=== PATIENT | male | born 2000 | race Hispanic/Latino ===

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

== ENCOUNTER 2025-02-20 13:12 | Emergency (ER) | payer BC ==
[~2025-02-20] VITALS: Ht 170.2 cm; Wt 69.9 kg
[~2025-02-20 13:12] MED LIST: ONDA-243 PO
[2025-02-20 13:14] VITALS: BP 108/69; PULSE 62; RESP 14; TEMP 97.6
--- NOTE | 2025-02-20 13:25 | NUR ---
PATIENT ELOPED. PATIENT PARTNER CAME TO TELL US THEY ARE LEAVING TO [facility]. SEEN LEAVING ER.
--- NOTE | 2025-02-20 13:28 | ERN ---
ED Note History of Present Illness Stated Complaint: LEFT EAR PAIN WITH MASS Chief Complaint: Earache Time Seen by MD: 13:16 Dictation: PATIENT IS A 24-YEAR-OLD MALE HERE WITH SWELLING TO THE LEFT EAR PAIN HE HAS HAD FOR 3-4 DAYS. STATES IT STARTED OUT A PIMPLE AND GOT WORSE WHEN HE SQUEEZED IT TWO DAYS AGO. HE STATES HE HAS CONTINUED TO WORK, DID NOT GO SEE HIS DOCTOR AT [facility]. NO FEVER NO CHILLS AT THIS TIME. NO MASTOID TENDERNESS ON EXAM IN TRIAGE. NO CHANGE IN HEARING ACUITY Allergies: Coded Allergies: No Known Allergies (Unverified Allergy, Unknown, 01/22/25) Home Meds Active Scripts Ondansetron (Ondansetron Odt) 4 Mg Tab.rapdis, 1 TAB PO Q6HPRN PRN for nausea/vomiting for 3 Days, #10 TAB 0 Refills Prov:MADISYN MASTERSON DO 01/22/25 Past Medical History Past Medical History: No Pertinent History Surgical History: None RN Note Reviewed/Agreed w/PFSH: Yes Review of System Dictation CONSTITUTIONAL: NEGATIVE EXCEPT FOR HPI HEAD/FACE: NEGATIVE EXCEPT FOR HPI EENT: NEGATIVE EXCEPT FOR HPI RIGHT EAR PAIN OF PAIN SWELLING RESPIRATORY: NEGATIVE EXCEPT FOR HPI GASTROINTESTINAL/ABDOMINAL: NEGATIVE EXCEPT FOR HPI GENITOURINARY: NEGATIVE EXCEPT FOR HPI MUSCULOSKELETAL: NEGATIVE EXCEPT FOR HPI INTEGUMENTARY: NEGATIVE EXCEPT FOR HPI NEUROLOGICAL/PSYCH: NEGATIVE EXCEPT FOR HPI HEMATOLOGIC/LYMPHATIC: NEGATIVE EXCEPT FOR HPI ALL SYSTEMS NEGATIVE, EXCEPT NOTED ABOVE. 13 POINT REVIEW OF SYSTEMS ASSESSED AND ALL NEGATIVE EXCEPT FOR ABOVE. Initial Vital Sign VS Vital Signs Date Time Temp Pulse Resp B/P (MAP) Pulse Ox O2 Delivery O2 Flow Rate FiO2 02/20/25 13:14 97.5 62 14 108/69 100 0 Physical Exam Dictation VITAL SIGNS REVIEWED GENERAL APPEARANCE: ALERT, ORIENTED X 3, MILD ACUTE DISTRESS, WELL DEVELOPED, NOURISHED. HEAD AND FACE: NON-TRAUMATIC. EYES: PERRL, PINK CONJUNCTIVAS, EYELID NO TRAUMA, ANTERIOR CHAMBER WITH ARCUS SENILIS. EARS: RIGHT PAIN AND WITH MILD ERYTHEMA SWELLING. TM INTACT. NO MASTOID TENDERNESS NOSE: NO DISCHARGE, NO BLEEDING. OROPHARYNX: MOUTH NORMAL, TONGUE PINK, PHARYNX CLEAR,NO ERYTHEMA, TONSILS NO EXUDATES, NO ABSCESSES NOTED, MUCOUS MEMBRANE MOIST NECK: SUPPLE, NON-TENDER, NO THYROMEGALY, NO MASSES, NO JVD, NO BRUITS BREAST:DEFERRED CHEST:NO TENDERNESS, NO CREPITUS, NO PARADOXICAL MOVEMENT, NO RETRACTIONS LUNGS:CLEAR, WELL-VENTILATED, SYMMETRIC, NO RALES, NO WHEEZING, NO RHONCHI, NO STRIDOR, GOOD BREATH SOUNDS BILATERALLY HEART: REGULAR RATE, REGULAR RHYTHM, NO MURMUR, NO GALLOPS VASCULAR: NO PERIPHERAL EDEMA, ABDOMEN: SOFT, POSITIVE BOWEL SOUNDS, NONDISTENDED, NO GUARDING, NONTENDER, NO REBOUND, NO MASSES NO HEPATOMEGALY, NO SPLENOMEGALY, NO MCFARLAND'S SIGN, NO HERNIAS. RECTAL: DEFERRED GENITAL: DEFERRED NEUROLOGICAL: NORMAL SPEECH, MOTOR FUNCTION INTACT, SENSORY FUNCTION INTACT MUSCULOSKELETAL: NECK NONTENDER, FULL RANGE OF MOTION, BACK NONTENDER, FULL RANGE OF MOTION, EXTREMITIES: NONTENDER, FULL RANGE OF MOTION SKIN: COLOR PINK, DRY, NO TURGOR, NO RASH, NO LACERATIONS, NO ABRASIONS, NO CONTUSIONS. LYMPHATIC: DEFERRED Results (Laboratory/Radiology) Labs Reviewed?: Yes ED Course ED Course Orders Procedure Category Date Status Time Ibuprofen 800 Mg Tab PHA 02/20/25 Transmitted (Motrin) 13:30 Ceftriaxone 1g Vial PHA 02/20/25 Transmitted (Rocephine 1g Inj) 13:30 Current Medications Medications (Trade) Dose Ordered Sig/Toya Route PRN Reason Start Time Stop Time Status Last Admin Dose Admin Ceftriaxone Sodium (ROCEphine 1G INJ) 1 gm ONCE ONCE IM 02/20/25 13:30 02/20/25 13:31 UNV Ibuprofen (moTRIN) 800 mg ONCE ONCE PO 02/20/25 13:30 02/20/25 13:31 UNV Vital Signs Date Time Temp Pulse Resp B/P (MAP) Pulse Ox O2 Delivery O2 Flow Rate FiO2 02/20/25 13:14 97.5 62 14 108/69 100 0 1325/PATIENT WILL BE GIVEN IBUPROFEN AND ROCEPHIN IM. TOLD TO NOT SQUEEZE ANY LESIONS ON HIS EAR AND TO SEE HIS DOCTOR ON SATURDAY FOR REFERRAL TO ENT. Medical Decision Making MDM MEDICAL DISCHARGE MAKING BASED ON CELLULITIS RIGHT EAR [place] DISCHARGED HOME AFTER ROCEPHIN AND IBUPROFEN JANUSZ GASTON FROM TRIAGE INFORMED ME THE PATIENT LEFT AGAINST MEDICAL ADVICE TOLD HIM THEY WERE GOING TO GO TO [facility] DX & DISP Disposition: Departure Impression: Primary Impression: Cellulitis of right external ear Condition: Stable Referrals: SELF,REFERRAL (PCP) I have reviewed the case, and I agree with, Diagnosis and Plan DARRYL VARGAS NP Feb 20, 2025 13:28
[2025-02-20] MEDS ORDERED: ibuPROFEN 800 MG TAB PO ONE (13:30)
[2025-02-20] MEDS ORDERED: cefTRIAXone 1G VIAL IM ONE (13:30)
== END 2025-02-20 13:25 ==
LOC: EDH 13:12
DX: H60.11 Cellulitis of right external ear (principal)
CPT/HCPCS: 99283; 99285

== ENCOUNTER 2025-04-09 20:39 | Emergency (ER) | payer BC ==
[~2025-04-09] VITALS: Ht 170.2 cm; Wt 58.1 kg
--- NOTE | 2025-04-09 20:42 | NUR ---
UA CUP PROVIDED
[2025-04-09 21:12] LABS: BASOPHILS # (AUTO) 0.07 K/uL (0.00-0.20); BASOPHILS % (AUTO) 0.8 % (0.0-5.0); EOSINOPHILS # (AUTO) 0.05 K/uL (0.00-0.70); EOSINOPHILS % (AUTO) 0.6 % (0.0-8.0); HEMATOCRIT 39.1 % (42-54); IMMATURE GRANULOCYTE ABSOLUTE 0.03 K/uL (0-1); LYMPHOCYTES # (AUTO) 2.4 K/uL (1.0-4.8); LYMPHOCYTES % (AUTO) 28.3 % (21.0-51.0); MEAN CORPUSCULAR HEMOGLOBIN 32.9 pg (27.0-33.0); MONOCYTES # (AUTO) 0.7 K/uL (0.1-1.0); MONOCYTES % (AUTO) 8.5 % (3.0-13.0); NEUTROPHILS # (AUTO) 5.3 K/uL (1.8-7.7); NEUTROPHILS % (AUTO) 61.5 % (40.0-77.0); PLATELET COUNT (AUTO) 271 K/uL (130-400); RED BLOOD CELL COUNT(AUTO) 4.16 MIL/uL (4.50-6.20); WHITE BLOOD COUNT (AUTO) 8.6 K/uL (4.8-10.8)
--- NOTE | 2025-04-09 21:12 | ERN ---
ED Note History of Present Illness Stated Complaint: ABD PAIN, DARK STOOLS, NAUSEA Chief Complaint: Multiple Complaints Time Seen by MD: 20:46 Time Seen by Midlevel: 21:00 Dictation: Mr. Peck is a 24-year-old male with no reported chronic health issues who presented to the emergency department this evening for evaluation of abdominal pain. He reports upper abdominal/epigastric abdominal pain x1 week. He states he has had dark/bloody stools. He states he saw his PCP yesterday and received a referral to see director of pupil personnel program. Pain worsened today; rates 8/10, prompting him to come to the hospital. He denies having fever, chills, shortness of breath, cough, chest pain, palpitations, edema, nausea, vomiting, hematemesis, hematochezia, constipation, headache, or dizziness. Allergies: Coded Allergies: No Known Allergies (Unverified Allergy, Unknown, 01/22/25) Home Meds Active Scripts Ondansetron (Ondansetron Odt) 4 Mg Tab.rapdis, 1 TAB PO Q6HPRN PRN for nausea/vomiting for 3 Days, #10 TAB 0 Refills Prov:MADISYN MASTERSON DO 01/22/25 Past Medical History Past Medical History: No Pertinent History Surgical History: None PSYCH History: no pertinent psych hx Social History: Negative RN Note Reviewed/Agreed w/PFSH: Yes Review of System Dictation REVIEW OF SYSTEMS: CONSTITUTIONAL: Patient denies fevers, chills, sweats and weight changes. EYES: Patient denies any visual symptoms. EARS, NOSE, AND THROAT: No difficulties with hearing. No symptoms of rhinitis or sore throat. CARDIOVASCULAR: Patient denies chest pains, palpitations, orthopnea and paroxysm al nocturnal dyspnea. RESPIRATORY: No dyspnea on exertion, no wheezing or cough. GI: No nausea, vomiting, diarrhea, constipation, or hematochezia reports upper abdominal/epigastric pain as well as dark/bloody stools x1 week. Pain today worsened; rates 8/10. : No urinary hesitancy or dribbling. No nocturia or urinary frequency. No abnormal urethral discharge. MUSCULOSKELETAL: No myalgias or arthralgias. NEUROLOGIC: No chronic headaches, no seizures. Patient denies numbness, tingling or weakness. PSYCHIATRIC: Patient denies problems with mood disturbance. No problems with anxiety. ENDOCRINE: No excessive urination or excessive thirst. DERMATOLOGIC: Patient denies any rashes or skin changes. Initial Vital Sign VS Vital Signs Date Time Temp Pulse Resp B/P (MAP) Pulse Ox O2 Delivery O2 Flow Rate FiO2 04/09/25 20:40 97.9 77 16 124/87 100 Room Air Physical Exam Dictation Vital signs: Reviewed. Afebrile Constitutional: No acute distress. Non-toxic appearing. Smiling/laughing. Accompanied by significant other Head/Face: Normocephalic, atraumatic. Eyes: Periorbital areas with no swelling, redness, or edema. Lids and lashes are normal. Conjunctival injection is absent. Sclera anicteric. Pupils equal, round, reactive to light. ENT: Pinnas intact and no signs of trauma or erythema. Ear canals clear and no discharge. TMs no erythema. No nasal discharge or bleeding noted. Oropharynx with no exudate, redness, swelling, masses, exudates, or evidence of obstruction. Uvula midline. Mucous membranes moist. Neck: Trachea midline, no masses palpated, and no cervical lymphadenopathy. No swelling. Supple, full range of motion. Chest/Axilla: No tenderness, no crepitus, no paradoxical movement, no retractions. Cardiovascular: Regular rate, regular rhythm, no murmur, no gallops. Symmetric pulses. No peripheral edema. Respiratory: Respirations even and unlabored. Lung sounds clear; no wheezes, rales or rhonchi. Room air SpO2 99% Gastrointestinal: Inspection is normal. No distention is appreciated. Bowel sounds are normal. No mass or organomegaly . There is slight tenderness diffusely. No rebound. No rigidity. No voluntary or involuntary guarding. No Whelan's sign. : Urine clear/yellow. Negative CVA tenderness bilaterally Neurological: Normal speech, gross motor function intact, gross sensory func tion intact. No focal weakness/Paresthesia. Musculoskeletal/Extremities: All extremities have full range of motion, no pain or tenderness on palpation. Symmetric pulses. Integumentary: Intact. Skin is normal color, warm and dry. Cap refill less than 2 seconds. Results (Laboratory/Radiology) Laboratory/Radiology Laboratory Tests Test 04/09/25 21:04 White Blood Count 8.6 K/uL (4.8-10.8) Red Blood Count 4.16 MIL/uL (4.50-6.20) L Hemoglobin 13.7 g/dL (14.0-18.0) L Hematocrit 39.1 % (42-54) L Mean Corpuscular Volume 94.0 fL (79-99) Mean Corpuscular Hemoglobin 32.9 pg (27.0-33.0) Mean Corpuscular Hemoglobin Concent 35.0 g/dL (32.0-36.0) Red Cell Distribution Width 12.0 % (11.0-15.5) Platelet Count 271 K/uL (130-400) Mean Platelet Volume 9.6 fL (7.5-10.5) Immature Granulocyte % (Auto) 0.3 % (0-1) Neutrophils (%) (Auto) 61.5 % (40.0-77.0) Lymphocytes (%) (Auto) 28.3 % (21.0-51.0) Monocytes (%) (Auto) 8.5 % (3.0-13.0) Eosinophils (%) (Auto) 0.6 % (0.0-8.0) Basophils (%) (Auto) 0.8 % (0.0-5.0) Neutrophils # (Auto) 5.3 K/uL (1.8-7.7) Lymphocytes # (Auto) 2.4 K/uL (1.0-4.8) Monocytes # (Auto) 0.7 K/uL (0.1-1.0) Eosinophils # (Auto) 0.05 K/uL (0.00-0.70) Basophils # (Auto) 0.07 K/uL (0.00-0.20) Absolute Immature Granulocyte (auto 0.03 K/uL (0-1) Nucleated Red Blood Cells 0.0 % (0.0-0.19) Urine Color YELLOW (YELLOW) Urine Appearance CLEAR (CLEAR) Urine pH 5.5 (5.0-8.0) Urine Specific [place] 1.027 (1.001-1.031) Urine Protein 20 mg/dL (NEGATIVE) H Urine Glucose (UA) NEGATIVE mg/dL (NEGATIVE) Urine Ketones NEGATIVE mg/dL (NEGATIVE) Urine Occult Blood NEGATIVE (NEGATIVE) Urine Nitrate NEGATIVE (NEGATIVE) Urine Bilirubin NEGATIVE mg/dL (NEGATIVE) Urine Urobilinogen 0.2 mg/dL (0.2-1.0) Urine Leukocyte Esterase NEGATIVE Amy/uL Urine RBC 0-1 /HPF (0-1) Urine WBC 0-1 /HPF (0-1) Urine Squamous Epithelial Cells RARE /HPF (0-2) Urine Bacteria None /HPF (None Seen) Sodium Level 144 mmol/L (136-145) Potassium Level 3.6 mmol/L (3.5-5.1) Chloride Level 106 mmol/L (101-111) Carbon Dioxide Level 30 mmol/L (21-32) Blood Urea Nitrogen 16 mg/dL (7-18) Creatinine 0.8 mg/dL (0.5-1.3) Glomerular Filtration Rate Calc 126 mL/min (>90) Random Glucose 76 mg/dL (70-105) Total Calcium 8.8 mg/dL (8.5-10.1) Troponin I High Sensitivity < 4 ng/L (4-75) L Lipase 258 U/L (16-77) H Urine Opiates Screen NEGATIVE (NEGATIVE) Urine Barbiturates Screen NEGATIVE (NEGATIVE) Urine Phencyclidine Screen NEGATIVE (NEGATIVE) Urine Amphetamines Screen NEGATIVE (NEGATIVE) Urine Benzodiazepines Screen NEGATIVE (NEGATIVE) Urine Cocaine Screen NEGATIVE (NEGATIVE) Urine Marijuana (THC) Screen POSITIVE (NEGATIVE) H Serum Alcohol < 3 mg/dL (0-10) Labs Reviewed?: Yes CT Scan Comment: PATIENT: PAM PECK MR#: [id number] : 2000 SEX: M AGE: 24 LOCATION: [facility] ORDER 11 STATUS: [facility] REPORT#: [id number] SERVICE 10 REASON: upper abdominal pain ORDERING PHYSICIAN: DAJUAN GREENFIELD NP PROCEDURE: ABD PEL WO - CT ABDOMEN/PELVIS W/O CONTRAST CT ABDOMEN WITHOUT CONTRAST. CT PELVIS WITHOUT CONTRAST. INDICATION: Upper abdominal pain TECHNIQUE: Routine transaxial imaging using 5 mm slice thickness through the abdomen and pelvis without the administration of IV contrast. Thin slice reconstructions are also provided. Coronal and sagittal reformatted images acquired for interpretation. CT was performed with one or more of the following dose reduction techniques: Automated exposure control, adjustment of the mA and/or kV according to patient size, or use of iterative reconstruction technique. COMPARISON: None FINDINGS: ON NONCONTRAST IMAGING: ABDOMEN: Heart size is normal. Visible lung bases are clear. No abnormal renal calcifications, hydronephrosis, perinephric inflammation, or proximal hydroureter detected. The liver is normal in size and smooth in contour without biliary duct dilation. The spleen is normal in size and attenuation. The gallbladder appears normal. The pancreas appears normal without pancreatic duct dilation. The adrenal glands appear normal. No significant abdominal, retrocrural or retroperitoneal adenopathy noted. No evidence for intra-abdominal free air or organized fluid collection. No aortic aneurysmal dilation identified. PELVIS: No abnormal calcifications within the urinary bladder or distal ureters. No evidence for free air or organized pelvic fluid collection. No significant pelvic adenopathy detected. Mild to moderate wall thickening/submucosal edema suspected along the proximal jejunum within the left upper abdomen. No surrounding inflammatory fat stranding. Terminal ileum appears unremarkable. The appendix appears normal. Visible osseous structures are intact. IMPRESSION: Suspect mild proximal jejunitis. Otherwise, normal study. DICTATED BY: ZENA UMAÑA MD DATE: 04/09/252135 ELECTRONICALLY SIGNED BY: ZENA UMAÑA MD DATE: 04/09/252140 ED Course ED Course Orders Procedure Category Date Status Time Vital Signs Per CPOE 04/09/25 Transmitted Routine 20:41 Saline Lock Iv CPOE 04/09/25 Transmitted 20:41 Cbc With Differential LAB 04/09/25 Complete 20:41 Lipase LAB 04/09/25 Complete 20:41 Urinalysis Profile LAB 04/09/25 Complete 20:41 Basic Metabolic Panel LAB 04/09/25 Complete 20:41 Drug Screen Urine LAB 04/09/25 Complete 20:41 Type And Screen BBK 04/09/25 Complete 21:07 Troponin I High LAB 04/09/25 Complete Sensitivity 21:07 Pantoprazole 40mg Inj PHA 04/09/25 In Process (Protonix 40mg Inj 21:30 Occult Blood Stool LAB 04/09/25 Logged Single Only 21:07 Ct Abdomen/Pelvis W/O CT 04/09/25 Resulted Contrast 21:11 Alcohol, Blood LAB 04/09/25 Complete 23:03 Current Medications Medications (Trade) Dose Ordered Sig/Toya Route PRN Reason Start Time Stop Time Status Last Admin Dose Admin Pantoprazole Sodium (PROTonix 40MG INJ) 40 mg ONCE IVP 04/09/25 21:30 04/09/25 23:59 04/09/25 23:15 Vital Signs Date Time Temp Pulse Resp B/P (MAP) Pulse Ox O2 Delivery O2 Flow Rate FiO2 04/09/25 20:40 97.9 77 16 124/87 100 Room Air Uneventful ED course. Vital signs remained stable; afebrile and normotensive with room air SpO2 100%. CT scan of the abdomen and pelvis revealed [id number] wall thickening/submucosal edema suspected along the proximal jejunum within the left upper abdomen no surrounding inflammatory fat stranding in the terminal ileum appears unremarkable. Laboratory findings as noted below. No elevation of WBCs. H&H are 13.7/39.1, no electrolyte derangement. Lipase is elevated at 358. UA is clear. UDS positive for marijuana. While in the ED he received dose Protonix. He has referral to director of pupil personnel program scheduled. Findings were discussed with patient and all questions were answered. Medical Decision Making MDM MDM: DIFFERENTIAL DIAGNOSIS: ANEMIA, GASTRITIS, UTI RATIONALE: TESTS CONSIDERED AND ORDERED SECONDARY TO SHARED DECISION MAKING INCLUDE: PREVIOUS OUTSIDE RECORDS REVIEWED: OLD ER VISITS. RISK OF COMPLICATION AND/OR MORBIDITY OR MORTALITY OF PATIENT MANAGEMENT: NONE MEDICATIONS-PER MEDICATION RECONCILIATION NEED FOR HOSPITALIZATION: PATIENT DOES NOT MEET CRITERIA FOR HOSPITALIZATION. NEED FOR EMERGENCY MAJOR/MINOR SURGERY: NO THERE ARE NO SOCIAL CONCERNS WITH THIS PATIENT. PRESCRIPTION DRUG MANAGEMENT: FLAGYL, OMEPRAZOLE PRESCRIPTIONS WILL INCLUDE SYMPTOMATIC CARE PATIENT'S PRIOR EXTERNAL MEDICAL RECORDS FROM OTHER ER VISITS WERE REVIEWED BY ME INDICATED. PRIOR TESTING AND RESULTS FROM PREVIOUS VISITS WERE REVIEWED. PRIOR TESTS WERE TAKEN INTO ACCOUNT WITH MEDICAL DECISION MAKING AND RESOURCE UTILIZATION, INDEPENDENT HISTORIAN/HISTORIANS WERE USED TO OBTAIN COMPLETE MEDICAL HISTORY. I INDEPENDENTLY INTERPRETED THE TEST THAT WERE PERFORMED, RESULTS WERE REVIEWED BY ME AND CONSIDERED FINDINGS ON RADIOLOGY IF ORDERED. MEDICAL MANAGEMENT AND EXAMINATION INTERPRETATION DISCUSSIONS WERE HAD BY ME WITH OTHER QUALIFIED HEALTHCARE PROFESSIONALS INDICATED FOR THE PATIENT'S CARE. DX & DISP Disposition: Discharge Departure Impression: Primary Impression: Jejunitis Additional Impressions: Abdominal pain, Elevated lipase Condition: Stable Scripts Metronidazole (Metronidazole) 500 Mg Tablet 1 TAB PO TID for 10 Days, #30 TAB 0 Refills Prov: DAJUNA GREENFIELD ELECTRICAL LOGGING ENGINEER 04/09/25 Omeprazole (Omeprazole) 40 Mg Capsule. 1 CAP PO DAILY for 30 Days, #30 CAP 0 Refills Prov: DAJUAN GREENFIELD ELECTRICAL LOGGING ENGINEER 04/09/25 Additional Instructions: Rest. Drink plenty of fluids bland diet. May take Zofran ODT every 8 hours as needed for nausea. Continue follow up with your PCP and director of pupil personnel program. Return to the emergency department for any worsening of symptoms or concerns. Referrals: SELF,REFERRAL (PCP) Time of Disposition: 23:52 DAJUAN GREENFIELD NP April 09, 2025 21:12
[2025-04-09 21:25] LABS: APPEARANCE,URINE CLEAR (CLEAR); BILIRUBIN,URINE NEGATIVE (NEGATIVE); COLOR,URINE YELLOW (YELLOW); GLUCOSE, URINE (UA) NEGATIVE (NEGATIVE); KETONES,URINE NEGATIVE (NEGATIVE); LEUKOCYTE ESTERASE ,URINE NEGATIVE Leu/uL (NEGATIVE); NITRATE,URINE NEGATIVE (NEGATIVE); OCCULT BLOOD,URINE NEGATIVE (NEGATIVE); PH,URINE 5.5 (5.0-8.0); PROTEIN,URINE 20 mg/dL (NEGATIVE); UROBILINOGEN,URINE 0.2 mg/dL (0.2-1.0)
[2025-04-09 21:29] LABS: ADD UA MICROSCOPIC YES
[2025-04-09 21:30] LABS: MUCUS,URINE MANY LPF (None Seen); RBC,URINE 0-1 /HPF (0-1); SQUAMOUS EPITHELIAL CELL,UR RARE /HPF (0-2); WBC,URINE 0-1 /HPF (0-1)
[2025-04-09 21:31] LABS: CREATININE 0.8 mg/dL (0.5-1.3); POTASSIUM 3.6 mmol/L (3.5-5.1)
--- NOTE | 2025-04-09 21:41 | HMCIMG ---
CT ABDOMEN WITHOUT CONTRAST. CT PELVIS WITHOUT CONTRAST. INDICATION: Upper abdominal pain TECHNIQUE: Routine transaxial imaging using 5 mm slice thickness through the abdomen and pelvis without the administration of IV contrast. Thin slice reconstructions are also provided. Coronal and sagittal reformatted images acquired for interpretation. CT was performed with one or more of the following dose reduction techniques: Automated exposure control, adjustment of the mA and/or kV according to patient size, or use of iterative reconstruction technique. COMPARISON: None FINDINGS: ON NONCONTRAST IMAGING: ABDOMEN: Heart size is normal. Visible lung bases are clear. No abnormal renal calcifications, hydronephrosis, perinephric inflammation, or proximal hydroureter detected. The liver is normal in size and smooth in contour without biliary duct dilation. The spleen is normal in size and attenuation. The gallbladder appears normal. The pancreas appears normal without pancreatic duct dilation. The adrenal glands appear normal. No significant abdominal, retrocrural or retroperitoneal adenopathy noted. No evidence for intra-abdominal free air or organized fluid collection. No aortic aneurysmal dilation identified. PELVIS: No abnormal calcifications within the urinary bladder or distal ureters. No evidence for free air or organized pelvic fluid collection. No significant pelvic adenopathy detected. Mild to moderate wall thickening/submucosal edema suspected along the proximal jejunum within the left upper abdomen. No surrounding inflammatory fat stranding. Terminal ileum appears unremarkable. The appendix appears normal. Visible osseous structures are intact. IMPRESSION: Suspect mild proximal jejunitis. Otherwise, normal study.
[2025-04-09 21:49] LABS: AMPHET/METH SCREEN,URINE NEGATIVE (NEGATIVE); BARBITURATE SCREEN, URINE NEGATIVE (NEGATIVE); BENZODIAZEPINES SCREEN,URINE NEGATIVE (NEGATIVE); CANNABINOID SCREEN,URINE POSITIVE (NEGATIVE); COCAINE SCREEN,URINE NEGATIVE (NEGATIVE); OPIATE SCREEN,URINE NEGATIVE (NEGATIVE); PHENCYCLIDINE SCREEN,URINE NEGATIVE (NEGATIVE)
--- NOTE | 2025-04-09 22:05 | NUR ---
TRIAGE EDIT TO REFLECT UDS RESULTS
[2025-04-09] MEDS: PANTOPrazole 40 MG/VIAL IVP SCH (23:15)
[2025-04-09] MEDS ORDERED: OMEP40CA21 PO (23:56)
[2025-04-09] MEDS ORDERED: METR-172 PO (23:56)
[2025-04-10 00:05] VITALS: BP 128/87; PULSE 86; RESP 18; TEMP 98.4; O2SAT 98
== END 2025-04-10 00:07 | disposition home or self-care (01) ==
LOC: EDH 20:39
DX: K52.9 Noninfective gastroenteritis and colitis, unspecified (principal); R74.8 Abnormal levels of other serum enzymes; Z79.899 Other long term (current) drug therapy
CPT/HCPCS: 99284; 74176; 96374; 84484; 80048; 80305; 83690; 85025; 86850; 86900; 86901; 36415; 81001; J2470